=== PATIENT | female | born 1960 | race Caucasian/White ===

== ENCOUNTER 2017-01-18 07:42 | Day surgery (SDC) | payer OTHER ==
--- NOTE | ~2017-01-18 | EGD ---
EGD REPORT [facility] [address] [place]. [address] NAME: ROSALINA DESIR : [birth year] STATUS : REG [facility]#: [id number] AGE: 56 ADM/REG DATE : 01/18/17 MR#: [id number] REPORT SERV DATE: 01/18/17 DICTATED BY: ABBY AYOUB DATE: 01/18/17 REPORT STATUS : Draft [facility]ANS[facility]: [facility] DATE: 01/18/17 Endoscopy Center Patient Name: Rosalina Desir Date of : 1960 Attending MD: ABBY AYOUB MD Procedure Date No Time: 01/18/2017 Procedure: Colonoscopy Indications: Colon cancer screening in patient at increased risk: Family history of colon polyps; positive Cologuard test. Patient Profile: Informed consent was obtained from the patient by me prior to the procedure. Risks, benefits, and alternatives were discussed including the risk of bleeding, perforation, infection, reaction to medicine, missed lesion, and cardiopulmonary complications. Referring MD: MAKENNA HYMAN Medicines: Monitored Anesthesia Care Complications: No immediate complications. Procedure: Pre-Anesthesia Assessment: - ASA Grade Assessment: III - A patient with severe systemic disease. After I obtained informed consent, the scope was passed under direct vision. Throughout the procedure, the patient's blood pressure, pulse, and oxygen saturations were monitored continuously. The PCF [id number] was introduced through the anus and advanced to the cecum, identified by appendiceal orifice and ileocecal valve. The colonoscope was slowly withdrawn with careful examination all mucosal surfaces including specific attention around flexures and tip deflection behind folds; retroflexion performed in rectum. The colonoscopy was performed without difficulty. The patient tolerated the procedure well. The quality of the bowel preparation was adequate. The ileocecal valve, appendiceal orifice and rectum were photographed. Findings: A pedunculated polyp was found in the sigmoid colon at 20 cm proximal to the anus. The polyp was 10 mm in size. The polyp was removed with a hot snare. Resection and retrieval were complete. One hemostatic clip was successfully placed to close defect, need to continue anticoagulation. A pedunculated polyp was found in the descending colon at 35 cm proximal to the anus. The polyp was 10 mm in size. The polyp was removed with a hot snare. Resection and retrieval were complete. One hemostatic clip was successfully placed to close defect. A flat polyp was found in the transverse colon. The polyp was 8 mm in EGD REPORT [address] [address] NAME: ROSALINA DESIR : [birth year] STATUS : [place] [facility] [place] PAT#: [id number] AGE: 56 ADM/REG DATE : 01/18/17 MR#: [id number] REPORT SERV DATE: 01/18/17 DICTATED BY: ABBY AYOUB DATE: 01/18/17 REPORT STATUS : Draft TRANSCRIBED BY: [employer] DATE: 01/18/17 size. The polyp was removed with a cold snare. Resection and retrieval were complete. A flat polyp was found in the descending colon. The polyp was 8 mm in size. The polyp was removed with a cold snare. Resection and retrieval were complete. Internal hemorrhoids were found, and they were mild. Multiple medium-mouthed diverticula were found in the sigmoid colon and in the descending colon. Impression: - One 10 mm polyp in the sigmoid colon at 20 cm proximal to the anus. Resected and retrieved. Clip was placed. - One 10 mm polyp in the descending colon at 35 cm proximal to the anus. Resected and retrieved. Clip was placed. - One 8 mm polyp in the transverse colon. Resected and retrieved. - One 8 mm polyp in the descending colon. Resected and retrieved. - Internal hemorrhoids. - Diverticulosis in the sigmoid colon and in the descending colon. Recommendation: - Patient has a contact number available for emergencies. The signs and symptoms of potential delayed complications were discussed with the patient. Return to normal activities tomorrow. Written discharge instructions were provided to the patient. - Regular diet. - Continue present medications. - Await pathology results. - Repeat colonoscopy for surveillance based on pathology results. - Continue Lovenox and restart coumadin tonight; follow INR PCP and touch base there re: when to stop the Lovenox (when INR >2). Procedure Code(s): --- Professional --- 07338, Colonoscopy, flexible, proximal to splenic flexure; with removal of tumor(s), polyp(s), or other lesion(s) by snare technique Diagnosis Code(s): --- Professional --- D12.3, Benign neoplasm of transverse colon D12.4, Benign neoplasm of descending colon D12.5, Benign neoplasm of sigmoid colon D12.6, Benign neoplasm of colon, unspecified K64.8, Other hemorrhoids EGD REPORT [address] [place]. [address] NAME: ROSALINA DESIR : [birth year] STATUS : REG [facility] [place] PAT#: [id number] AGE: 56 ADM/REG DATE : 01/18/17 MR#: [id number] REPORT SERV DATE: 01/18/17 DICTATED BY: ABBY AYOUB. DATE: 01/18/17 REPORT STATUS : Draft TRANSCRIBED BY: [employer] DATE: 01/18/17 K57.30, Diverticulosis of large intestine without perforation or abscess without bleeding Z12.11, Encounter for screening for malignant neoplasm of colon Z83.71, Family history of colonic polyps CPT copyright 2013 [employer]. All rights reserved. The codes documented in this report are preliminary and upon electrical and instrument mechanic review may be revised to meet current compliance requirements. ABBY AYOUB MD 01/18/2017 10:27 AM This report has been signed electronically. Number of Addenda: 0 Note Initiated On: 01/18/2017 9:30 AM Scope Withdrawal Time 0 hours 9 minutes 21 seconds [id number] [place] [id number]
--- NOTE | ~2017-01-18 | EGD ---
EGD REPORT [facility] [address] [address] NAME: ROSALINA DESIR : [birth year] STATUS : REG [facility]#: [id number] AGE: 56 ADM/REG DATE : 01/18/17 MR#: [id number] REPORT SERV DATE: 01/18/17 DICTATED BY: ABBY AYOUB DATE: 01/18/17 REPORT STATUS : Draft [facility]ANSCRIBED BY: [facility] DATE: 01/18/17 Endoscopy Center Patient Name: Rosalina Desir Date of : 1960 Attending MD: ABBY AYOUB MD Procedure Date No Time: 01/18/2017 Procedure: Upper GI endoscopy Indications: Heartburn; Dexilant 60mg daily; h/o DVT Lovenox bridging. Patient Profile: Informed consent was obtained from the patient by me prior to the procedure. Risks, benefits, and alternatives were discussed including the risk of bleeding, perforation, infection, reaction to medicine, missed lesion, and cardiopulmonary complications. Referring MD: RUPINDER ANGELA Medicines: Monitored Anesthesia Care Complications: No immediate complications. Procedure: Pre-Anesthesia Assessment: - ASA Grade Assessment: III - A patient with severe systemic disease. After obtaining informed consent, the endoscope was passed under direct vision. Throughout the procedure, the patient's blood pressure, pulse, and oxygen saturations were monitored continuously. The GIF H190 [id number] was introduced through the mouth, and advanced to the second part of duodenum. The endoscope was withdrawn with careful examination all mucosal surfaces including retroflexion stomach. The upper GI endoscopy was accomplished without difficulty. The patient tolerated the procedure well. Findings: The 2nd part of the duodenum was normal. Biopsies were taken with a cold forceps for histology. A single 5 mm sessile polyp with was found in the first part of the duodenum. The polyp was removed with a cold biopsy forceps. Resection and retrieval were complete. A single 7 mm pedunculated polyp was found in the gastric body. Biopsies were taken with a cold forceps for histology. The cardia, gastric antrum and gastric fundus (on retroflexion) were normal. The examined esophagus was normal. The esophagus and gastroesophageal junction were examined with white light. There was no visual evidence of Morgan's esophagus. A 5 cm hiatus hernia was present, no Chandana lesions. 32-37cm from bite block. EGD REPORT [address] [place]. [address] NAME: ROSALINA DESIR : [birth year] STATUS : REG [facility]#: [id number] AGE: 56 ADM/REG DATE : 01/18/17 MR#: [id number] REPORT SERV DATE: 01/18/17 DICTATED BY: ABBY AYOUB DATE: 01/18/17 REPORT STATUS : Draft TRANSCRIBED BY: [employer] DATE: 01/18/17 Impression: - Normal 2nd part of the duodenum. Biopsied. - A single duodenal polyp. Resected and retrieved. - A single gastric polyp. Biopsied. - Normal cardia, antrum and gastric fundus. - Normal esophagus. - There is no endoscopic evidence of Morgan's esophagus. - Hiatus hernia. Recommendation: - Patient has a contact number available for emergencies. The signs and symptoms of potential delayed complications were discussed with the patient. Return to normal activities tomorrow. Written discharge instructions were provided to the patient. - Regular diet. - Continue present medications. - Await pathology results. - Two previous aspiration events at night; refer Dr. Lewis evaluation re: hiatal hernia. Procedure Code(s): --- Professional --- 56233, Esophagogastroduodenoscopy, flexible, transoral; with biopsy, single or multiple Diagnosis Code(s): --- Professional --- K31.7, Polyp of stomach and duodenum K44.9, Diaphragmatic hernia without obstruction or gangrene R12, Heartburn CPT copyright 2013 [employer]. All rights reserved. The codes documented in this report are preliminary and upon customs inspector review may be revised to meet current compliance requirements. ABBY AYOUB MD 01/18/2017 9:51 AM This report has been signed electronically. Number of Addenda: 0 Note Initiated On: 01/18/2017 9:35 AM Scope Withdrawal Time 0 hours 0 minutes 0 seconds [id number] [address]
[~2017-01-18 07:42] MED LIST: C25 PO; C5 PO; FEMARA PO; KAPIDEX30 MG PO; LOVENOX1C SC; NEUR300 PO; PERCOCET 7.5/321 TAB PO; VITC500 PO
[2017-01-18 08:08] LABS: INTERNATIONAL NORMAL RATI 1.1 UNITS (-); PROTIME (NOT ORD) 14.2 SEC (12.0-14.5)
== END 2017-01-18 23:59 | disposition home or self-care (01) ==
LOC: DMU 07:42
PROVIDERS: Anesthesiology; Internal Medicine Gastroenterology
PROC: 0DB98ZZ Excision of Duodenum, Via Natural or Artificial Opening Endoscopic (ICD-10-PCS; 2017-01-18)
PROC: 0DB68ZX Excision of Stomach, Via Natural or Artificial Opening Endoscopic, Diagnostic (ICD-10-PCS; 2017-01-18)
PROC: 0DB98ZX Excision of Duodenum, Via Natural or Artificial Opening Endoscopic, Diagnostic (ICD-10-PCS; 2017-01-18)
PROC: 0DBN8ZZ Excision of Sigmoid Colon, Via Natural or Artificial Opening Endoscopic (ICD-10-PCS; principal; 2017-01-18 09:00)
PROC: 0DBL8ZZ Excision of Transverse Colon, Via Natural or Artificial Opening Endoscopic (ICD-10-PCS; 2017-01-18 09:00)
PROC: 0DBM8ZZ Excision of Descending Colon, Via Natural or Artificial Opening Endoscopic (ICD-10-PCS; 2017-01-18 09:00)
DX: Z12.11 Encounter for screening for malignant neoplasm of colon (principal); D12.5 Benign neoplasm of sigmoid colon; D12.4 Benign neoplasm of descending colon; D12.3 Benign neoplasm of transverse colon; K63.5 Polyp of colon; K64.8 Other hemorrhoids; K57.30 Diverticulosis of large intestine without perforation or abscess without bleeding; K29.80 Duodenitis without bleeding; K31.7 Polyp of stomach and duodenum; K44.9 Diaphragmatic hernia without obstruction or gangrene; K21.9 Gastro-esophageal reflux disease without esophagitis; G43.909 Migraine, unspecified, not intractable, without status migrainosus; Z80.0 Family history of malignant neoplasm of digestive organs; Z87.19 Personal history of other diseases of the digestive system; Z86.718 Personal history of other venous thrombosis and embolism; Z79.811 Long term (current) use of aromatase inhibitors; Z79.891 Long term (current) use of opiate analgesic; Z79.01 Long term (current) use of anticoagulants; Z79.899 Other long term (current) drug therapy; Z87.442 Personal history of urinary calculi; Z98.890 Other specified postprocedural states; Z85.3 Personal history of malignant neoplasm of breast; Z90.13 Acquired absence of bilateral breasts and nipples; Z98.51 Tubal ligation status; Z92.21 Personal history of antineoplastic chemotherapy; Z87.891 Personal history of nicotine dependence
CPT/HCPCS: 85610; 88305